=== PATIENT | male | born 1940 | race Caucasian/White ===

== ENCOUNTER 2017-05-21 13:13 | Inpatient (IN) | payer MEDICAID, MEDICARE ==
[~2017-05-21] VITALS: Ht 152.4 cm; Wt 63.1 kg
[~2017-05-21 13:13] MED LIST: AMIT10TA6 PO; CARV12.545 PO; CLON0.2T PO; DICL100G16 TP; DOCU250C69 PO; DOXA2TAB PO; ECON15CR11 TP; ENAL20TA PO; FLUT16SP15 NS; FOLI1TAB63 PO; HYDR100T26 PO; KETO5DRO80 OP; NEBI5TAB3 PO; NIFE90TA34 PO; ONDA4TAB5 PO; P20 PO; PRAV40TA PO; REN800 PO; SITA25TA3 PO
[2017-05-21 17:41] LABS: HEMATOCRIT. 41.3 % (42.0-52.0); HEMOGLOBIN. 13.5 g/dL (14.0-18.0); MEAN CORPUSCULAR HEMOGLOBIN 29.4 pg (28.0-32.0); MEAN PLATELET VOLUME 7.7 fl (7.4-10.4); PLATELET 79 x1000/uL (130-400); RED BLOOD CELL COUNT 4.59 mill/uL (4.7-6.1); RED CELL DISTRIBUTION WIDTH 20.9 % (11.6-14.6)
[2017-05-21 17:47] LABS: INR 1.3; PROTHROMBIN TIME 13.4 sec (9.4-11.6)
[2017-05-21 17:57] LABS: TROPONIN I 0.14 ng/mL (0.00-0.04)
[2017-05-21 18:13] LABS: PLATELET ESTIMATE DECREASED
[2017-05-21] MEDS ORDERED: SODIUM CHLORIDE 0.9% 1,000 ML IV SCH (19:52)
[2017-05-21 20:00] VITALS: BP 196/76
[2017-05-21] MEDS ORDERED: ENOXAPARIN 40MG/0.4ML SYR SUBCUT SCH (20:00)
[2017-05-21] MEDS ORDERED: IPRATROPIUM/ALBUTEROL 0.5-3(2.5)MG/3ML NEB INH PRN (20:00)
[2017-05-21] MEDS ORDERED: ONDANSETRON HCL 4MG/2ML VIAL IV PRN (20:00)
[2017-05-21] MEDS ORDERED: LORAZEPAM 0.5MG TABLET PO PRN (20:00)
[2017-05-21] MEDS: CLONIDINE 0.1MG TABLET PO PRN (20:33)
[2017-05-21 21:30] VITALS: BP 196/76
[2017-05-21 22:00] VITALS: BP 169/58
[2017-05-21] MEDS: ENOXAPARIN 30MG/0.3ML SYR SUBCUT SCH (23:43)
[2017-05-22] VITALS (56 sets, daily range): BP systolic 77–188; BP diastolic 38–80
[2017-05-22] MEDS ORDERED: DEXTROSE 50% WATER 50ML SYRINGE IV PRN (02:30)
[2017-05-22] MEDS: CLONIDINE 0.1MG TABLET PO PRN (05:48)
[2017-05-22] MEDS: BLOOD SUGAR DIAGNOSTIC STRIP TEST SCH ×4 (07:18→21:21)
[2017-05-22 07:19] LABS: HEMOGLOBIN. 13.7 g/dL (14.0-18.0); MEAN CORPUSCULAR HEMOGLOBIN 30.2 pg (28.0-32.0); MEAN CORPUSCULAR VOLUME 90.8 fL (80.0-94.0); MEAN PLATELET VOLUME 8.6 fl (7.4-10.4); PLATELET 64 x1000/uL (130-400); RED BLOOD CELL COUNT 4.52 mill/uL (4.7-6.1); RED CELL DISTRIBUTION WIDTH 20.1 % (11.6-14.6)
[2017-05-22 07:40] LABS: TROPONIN I 0.17 ng/mL (0.00-0.04)
[2017-05-22] MEDS ORDERED: FUROSEMIDE 40MG/4ML VIAL IVP NR (08:00)
[2017-05-22] MEDS: INSULIN LISPRO 100 UNITS/ML SUBCUT SCH ×4 (08:09→21:21)
[2017-05-22] MEDS: ACETAMINOPHEN 325MG TABLET PO PRN (08:22)
[2017-05-22] MEDS: DOCUSATE SODIUM 250MG CAPSULE PO SCH ×2 (08:22→16:18)
[2017-05-22] MEDS: CLONIDINE 0.2MG TABLET PO SCH ×2 (08:23→21:22)
[2017-05-22] MEDS: FOLIC ACID/VITAMIN B COMP W-C TABLET PO SCH (08:23)
[2017-05-22] MEDS: NIFEDIPINE XL 90MG TAB PO SCH (08:23)
[2017-05-22] MEDS: HYDRALAZINE HCL 100MG TABLET PO SCH ×2 (08:23→21:23)
[2017-05-22] MEDS: DOXAZOSIN MESYLATE 2MG TABLET PO SCH ×2 (08:24→21:24)
[2017-05-22 08:31] LABS: BG CARBOXYHEMOGLOBIN 1.8 % (0.5-1.5); BG DEOXYHEMOGLOBIN 5.7 % (0.0-5.0); BG FRACTION INSPIRED OXYGEN 32; BG HCO3 ACT 29.2 mmol/L (22.0-26.0); BG METHEMOGLOBIN 0.4 % (0.0-1.5); BG OXYGEN SATURATION 94.2 % (92.0-98.5); BG OXYHEMOGLOBIN 92.1 % (94.0-97.0); BG PCO2 37.3 mmHg (35.0-45.0); BG PH 7.512 (7.350-7.450); BG PO2 68.2 mmHg (75.0-100.0); BG SAMPLE SITE RIGHT BRACHIAL; BG TOTAL HEMOGLOBIN 13.2 g/dL (12.0-18.0); BG VENT MODE NASAL CANNULA
[2017-05-22] MEDS: IPRATROPIUM/ALBUTEROL 0.5-3(2.5)MG/3ML NEB HHN PRN ×2 (08:39→10:26)
[2017-05-22] MEDS ORDERED: ASPIRIN 81MG EC TABLET PO SCH (09:00)
[2017-05-22] MEDS ORDERED: CARVEDILOL 12.5MG TABLET PO SCH (09:00)
[2017-05-22] MEDS: FLUTICASONE PROPIONATE 50MCG/SPRAY BOTTLE BOTHNSTRLS SCH (09:40)
[2017-05-22] MEDS ORDERED: CEFTRIAXONE 1 G PREMIX 50 ML IV SCH (11:00)
[2017-05-22 11:13] LABS: BG BASE EXCESS 7.7 mmol/L (-2.0-2.0); BG BILEVEL POS AIRWAY PRESSURE 15/5; BG CARBOXYHEMOGLOBIN 0.9 % (0.5-1.5); BG DEOXYHEMOGLOBIN 0.6 % (0.0-5.0); BG FRACTION INSPIRED OXYGEN 75; BG HCO3 ACT 31.2 mmol/L (22.0-26.0); BG METHEMOGLOBIN 0.1 % (0.0-1.5); BG OXYGEN SATURATION 99.4 % (92.0-98.5); BG OXYHEMOGLOBIN 98.4 % (94.0-97.0); BG PCO2 39.7 mmHg (35.0-45.0); BG PH 7.513 (7.350-7.450); BG PO2 236.1 mmHg (75.0-100.0); BG SAMPLE SITE RIGHT BRACHIAL; BG TOTAL HEMOGLOBIN 12.6 g/dL (12.0-18.0); BG VENT MODE MASK - BIPAP
[2017-05-22] MEDS ORDERED: IPRATROPIUM/ALBUTEROL 0.5-3(2.5)MG/3ML NEB HHN SCH (12:00)
[2017-05-22] MEDS ORDERED: LORAZEPAM 0.5MG TABLET PO PRN (12:00)
[2017-05-22] MEDS: IPRATROPIUM/ALBUTEROL 0.5-3(2.5)MG/3ML NEB HHN SCH ×2 (13:52→20:08)
[2017-05-22 13:59] LABS: PLATELET ESTIMATE DECREASED
[2017-05-22] MEDS ORDERED: VANCOMYCIN 1250MG in DEXTROSE 5% WATER 250ML IV SCH (16:00)
[2017-05-22] MEDS: CEFTRIAXONE 1 G PREMIX 50 ML IV SCH (16:53)
[2017-05-22] MEDS: ATORVASTATIN CALCIUM 20MG TABLET PO SCH (21:24)
[2017-05-22] MEDS: ENOXAPARIN 30MG/0.3ML SYR SUBCUT SCH (23:35)
[2017-05-23] VITALS (62 sets, daily range): BP systolic 80–143; BP diastolic 21–94
[2017-05-23] MEDS: IPRATROPIUM/ALBUTEROL 0.5-3(2.5)MG/3ML NEB HHN SCH ×3 (01:38→13:39)
[2017-05-23 06:00] LABS: HEMATOCRIT. 38.9 % (42.0-52.0); HEMOGLOBIN. 12.9 g/dL (14.0-18.0); MEAN CORPUSCULAR HEMOGLOBIN 29.9 pg (28.0-32.0); MEAN CORPUSCULAR VOLUME 90.3 fL (80.0-94.0); MEAN PLATELET VOLUME 9.4 fl (7.4-10.4); RED BLOOD CELL COUNT 4.31 mill/uL (4.7-6.1); RED CELL DISTRIBUTION WIDTH 20.6 % (11.6-14.6)
[2017-05-23 06:13] LABS: PLATELET 49 x1000/uL (130-400)
[2017-05-23 06:26] LABS: TROPONIN I 0.14 ng/mL (0.00-0.04)
[2017-05-23] MEDS: INSULIN LISPRO 100 UNITS/ML SUBCUT SCH ×4 (08:14→21:00)
[2017-05-23] MEDS: BLOOD SUGAR DIAGNOSTIC STRIP TEST SCH ×4 (08:14→21:38)
[2017-05-23 08:33] LABS: PLATELET ESTIMATE MARKEDLY DECREASED
[2017-05-23] MEDS: HYDRALAZINE HCL 100MG TABLET PO SCH ×2 (09:00→21:00)
[2017-05-23] MEDS: DOXAZOSIN MESYLATE 2MG TABLET PO SCH ×2 (09:00→21:00)
[2017-05-23] MEDS: NIFEDIPINE XL 90MG TAB PO SCH (09:00)
[2017-05-23] MEDS: CLONIDINE 0.2MG TABLET PO SCH ×2 (09:00→21:00)
[2017-05-23] MEDS ORDERED: FUROSEMIDE 40MG/4ML VIAL IVP SCH (09:00)
[2017-05-23] MEDS: FOLIC ACID/VITAMIN B COMP W-C TABLET PO SCH (09:54)
[2017-05-23] MEDS: DOCUSATE SODIUM 250MG CAPSULE PO SCH ×2 (09:54→16:44)
[2017-05-23] MEDS: FLUTICASONE PROPIONATE 50MCG/SPRAY BOTTLE BOTHNSTRLS SCH (10:14)
[2017-05-23] MEDS ORDERED: GENTAMICIN 120MG PREMIX 100 ML IV SCH (15:00)
[2017-05-23] MEDS ORDERED: VANCOMYCIN 1 G PREMIX 200 ML IV SCH (15:00)
[2017-05-23] MEDS: CEFTRIAXONE 1 G PREMIX 50 ML IV SCH (15:50)
[2017-05-23] MEDS: ATORVASTATIN CALCIUM 20MG TABLET PO SCH (21:38)
[2017-05-23] MEDS: ACETAMINOPHEN 325MG TABLET PO PRN (23:16)
[2017-05-24] VITALS (8 sets, daily range): BP systolic 121–142; BP diastolic 45–83
[2017-05-24] MEDS: ACETAMINOPHEN 325MG TABLET PO PRN ×2 (04:42→09:52)
[2017-05-24 06:24] LABS: BASOPHILS % 0.4 % (0.0-2.0); EOSINOPHILS % 2.7 % (0.0-5.0); HEMATOCRIT. 36.7 % (42.0-52.0); HEMOGLOBIN. 12.2 g/dL (14.0-18.0); LYMPHOCYTES % 9.4 % (20.0-50.0); MEAN CORPUSCULAR VOLUME 90.4 fL (80.0-94.0); MEAN PLATELET VOLUME 9.6 fl (7.4-10.4); MONOCYTES % 13.3 % (2.0-8.0); NEUTROPHILS % 74.2 % (40.0-76.0); RED BLOOD CELL COUNT 4.06 mill/uL (4.7-6.1)
[2017-05-24] MEDS: BLOOD SUGAR DIAGNOSTIC STRIP TEST SCH ×4 (06:24→21:41)
[2017-05-24 07:18] LABS: CARBON DIOXIDE 28 mEq/L (21-32); CHLORIDE 99 mEq/L (98-107)
[2017-05-24 07:35] LABS: PLATELET 47 x1000/uL (130-400)
[2017-05-24] MEDS: IPRATROPIUM/ALBUTEROL 0.5-3(2.5)MG/3ML NEB HHN SCH ×3 (07:42→21:08)
[2017-05-24] MEDS: INSULIN LISPRO 100 UNITS/ML SUBCUT SCH ×4 (07:42→21:54)
[2017-05-24] MEDS: FOLIC ACID/VITAMIN B COMP W-C TABLET PO SCH (09:51)
[2017-05-24] MEDS: CLONIDINE 0.2MG TABLET PO SCH ×2 (09:51→21:40)
[2017-05-24] MEDS: NIFEDIPINE XL 90MG TAB PO SCH (09:51)
[2017-05-24] MEDS: HYDRALAZINE HCL 100MG TABLET PO SCH ×2 (09:51→21:41)
[2017-05-24] MEDS: DOCUSATE SODIUM 250MG CAPSULE PO SCH ×2 (09:52→18:03)
[2017-05-24] MEDS: DOXAZOSIN MESYLATE 2MG TABLET PO SCH ×2 (09:53→21:40)
[2017-05-24] MEDS: FLUTICASONE PROPIONATE 50MCG/SPRAY BOTTLE BOTHNSTRLS SCH (10:56)
[2017-05-24 11:13] LABS: BG BASE EXCESS 2.8 mmol/L (-2.0-2.0); BG CARBOXYHEMOGLOBIN 0.9 % (0.5-1.5); BG DEOXYHEMOGLOBIN 8.5 % (0.0-5.0); BG FRACTION INSPIRED OXYGEN 21; BG HCO3 ACT 27.7 mmol/L (22.0-26.0); BG METHEMOGLOBIN 0.3 % (0.0-1.5); BG OXYGEN SATURATION 91.4 % (92.0-98.5); BG OXYHEMOGLOBIN 90.3 % (94.0-97.0); BG PCO2 43.6 mmHg (35.0-45.0); BG PH 7.421 (7.350-7.450); BG PO2 64.6 mmHg (75.0-100.0); BG SAMPLE SITE RIGHT RADIAL; BG TOTAL HEMOGLOBIN 13.1 g/dL (12.0-18.0); BG VENT MODE ROOM AIR
[2017-05-24] MEDS: CEFTRIAXONE 1 G PREMIX 50 ML IV SCH (16:02)
[2017-05-24] MEDS: HYDROMORPHONE HCL/PF 2MG/ML CPJ IV PRN (17:14)
[2017-05-24] MEDS: ATORVASTATIN CALCIUM 20MG TABLET PO SCH (21:39)
[2017-05-25] MEDS: IPRATROPIUM/ALBUTEROL 0.5-3(2.5)MG/3ML NEB HHN SCH ×2 (02:27→08:04)
[2017-05-25] MEDS: HYDROMORPHONE HCL/PF 2MG/ML CPJ IV PRN (04:31)
[2017-05-25 05:08] VITALS: BP 134/69
[2017-05-25] MEDS: BLOOD SUGAR DIAGNOSTIC STRIP TEST SCH ×2 (07:08→12:20)
[2017-05-25 07:40] LABS: HEMATOCRIT. 36.5 % (42.0-52.0); HEMOGLOBIN. 12.2 g/dL (14.0-18.0); MEAN CORPUSCULAR VOLUME 89.6 fL (80.0-94.0); MEAN PLATELET VOLUME 9.5 fl (7.4-10.4); RED BLOOD CELL COUNT 4.08 mill/uL (4.7-6.1); RED CELL DISTRIBUTION WIDTH 19.8 % (11.6-14.6)
[2017-05-25] MEDS: INSULIN LISPRO 100 UNITS/ML SUBCUT SCH (07:49)
[2017-05-25 08:00] VITALS: BP 136/80
[2017-05-25] MEDS ORDERED: FUROSEMIDE 40MG/4ML VIAL IVP NR (08:45)
[2017-05-25 08:51] LABS: PLATELET 48 x1000/uL (130-400)
[2017-05-25] MEDS: HYDRALAZINE HCL 100MG TABLET PO SCH (09:00)
[2017-05-25] MEDS: CLONIDINE 0.2MG TABLET PO SCH (09:00)
[2017-05-25] MEDS: FOLIC ACID/VITAMIN B COMP W-C TABLET PO SCH (09:00)
[2017-05-25] MEDS: DOCUSATE SODIUM 250MG CAPSULE PO SCH (09:00)
[2017-05-25] MEDS: NIFEDIPINE XL 90MG TAB PO SCH (09:00)
[2017-05-25] MEDS: DOXAZOSIN MESYLATE 2MG TABLET PO SCH (09:00)
[2017-05-25 09:04] LABS: GENTAMICIN RANDOM 3.1 ug/mL
[2017-05-25 12:00] VITALS: BP 133/79
[2017-05-25 12:16] VITALS: BP 138/80
[2017-05-25 15:48] LABS: PLATELET ESTIMATE MARKEDLY DECREASED
== END 2017-05-25 13:55 | disposition home health service (06) | DRG 314 ==
LOC: ER 13:24 → 7WST 17:30 → ENRESERV 19:45 → EDBEDREQ 20:43 → 7WST 21:41 → CVICU 05-22 10:29 → 6WST 05-23 20:49
PROVIDERS: ADMIT Internal Medicine Geriatric Medicine; ATTEND Internal Medicine Geriatric Medicine
PROC: 5A09357 Assistance with Respiratory Ventilation, Less than 24 Consecutive Hours, Continuous Positive Airway Pressure (ICD-10-PCS; principal; 2017-05-22)
PROC: 5A1D70Z Performance of Urinary Filtration, Intermittent, Less than 6 Hours Per Day (ICD-10-PCS; 2017-05-22)
PROC: 5A1D70Z Performance of Urinary Filtration, Intermittent, Less than 6 Hours Per Day (ICD-10-PCS; 2017-05-25)
DX: T82.7XXA Infection and inflammatory reaction due to other cardiac and vascular devices, implants and grafts, initial encounter (principal); J96.00 Acute respiratory failure, unspecified whether with hypoxia or hypercapnia; N18.6 End stage renal disease; A41.50 Gram-negative sepsis, unspecified; I13.2 Hypertensive heart and chronic kidney disease with heart failure and with stage 5 chronic kidney disease, or end stage renal disease; I82.C12 Acute embolism and thrombosis of left internal jugular vein; D69.6 Thrombocytopenia, unspecified; E11.22 Type 2 diabetes mellitus with diabetic chronic kidney disease; I50.21 Acute systolic (congestive) heart failure; L03.114 Cellulitis of left upper limb; D63.8 Anemia in other chronic diseases classified elsewhere; Z99.2 Dependence on renal dialysis; B96.1 Klebsiella pneumoniae [K. pneumoniae] as the cause of diseases classified elsewhere; E78.00 Pure hypercholesterolemia, unspecified; E78.5 Hyperlipidemia, unspecified; I25.10 Atherosclerotic heart disease of native coronary artery without angina pectoris; I45.10 Unspecified right bundle-branch block; Y83.8 Other surgical procedures as the cause of abnormal reaction of the patient, or of later complication, without mention of misadventure at the time of the procedure; Y92.89 Other specified places as the place of occurrence of the external cause
CPT/HCPCS: 36415; 36600; 70450; 71010; 73060; 73090; 80048; 80053; 80076; 80170; 80202; 82375; 82805; 82962; 83735; 83880; 84443; 84484; 85025; 85610; 87040; 87077; 87186; 87804; 93005; 93306; 93970; 94640; 94660; 99285; J0696; J1170; J1580; J1650; J1815; J1940; J3370; J7030; J7040; J7050; J7060; J7620

== ENCOUNTER 2017-06-21 07:00 | Inpatient (IN) | payer MEDICARE ==
[~2017-06-21] VITALS: Ht 162.6 cm; Wt 64.4 kg
[2017-06-21] MEDS ORDERED: SODIUM CHLORIDE 0.9% 1,000 ML IV ONE (07:41)
[2017-06-21 08:19] LABS: BASOPHILS % 0.7 % (0.0-2.0); EOSINOPHILS % 2.3 % (0.0-5.0); HEMATOCRIT. 36.2 % (42.0-52.0); HEMOGLOBIN. 11.4 g/dL (14.0-18.0); LYMPHOCYTES % 8.8 % (20.0-50.0); MEAN CORPUSCULAR HEMOGLOBIN 28.9 pg (28.0-32.0); MEAN CORPUSCULAR VOLUME 91.5 fL (80.0-94.0); MEAN PLATELET VOLUME 7.9 fl (7.4-10.4); MONOCYTES % 8.4 % (2.0-8.0); NEUTROPHILS % 79.8 % (40.0-76.0); PLATELET 104 x1000/uL (130-400); RED BLOOD CELL COUNT 3.96 mill/uL (4.7-6.1)
[2017-06-21 08:27] LABS: INR 1.2; PROTHROMBIN TIME 12.7 sec (9.4-11.6)
[2017-06-21 08:37] LABS: CARBON DIOXIDE 26 mEq/L (21-32); CHLORIDE 100 mEq/L (98-107); TROPONIN I 0.16 ng/mL (0.00-0.04)
[2017-06-21 08:39] LABS: AMMONIA < 25 uMol/L (<32)
[2017-06-21] MEDS ORDERED: MORPHINE SULFATE 4 MG/ML CPJ (NOT FOR IM USE) IV ONE (09:00)
[2017-06-21] MEDS ORDERED: ONDANSETRON HCL 4MG/2ML VIAL IV ONE (09:00)
[2017-06-21] MEDS ORDERED: MORPHINE SULFATE 2 MG/ML CPJ (NOT FOR IM USE) IV ONE (09:10)
[2017-06-21] MEDS ORDERED: VANCOMYCIN 1 G PREMIX 200 ML IV SCH (09:30)
[2017-06-21] MEDS ORDERED: PIPERACILLIN/TAZOBACTAM 3.375GM/50ML PREMIX IV ONE (09:30)
[2017-06-21] MEDS ORDERED: PIPERACILLIN/TAZ 3.375G PREMIX 50 ML IV NR (09:45)
[2017-06-21] MEDS ORDERED: NITROGLYCERIN 0.4MG TABLET SL SL PRN (11:45)
[2017-06-21] MEDS ORDERED: DOCUSATE SODIUM 100MG CAPSULE PO PRN (11:45)
[2017-06-21] MEDS ORDERED: IPRATROPIUM/ALBUTEROL 0.5-3(2.5)MG/3ML NEB INH PRN (11:45)
[2017-06-21] MEDS ORDERED: NA PHOS,M-B/NA PHOS,DI-BA ENEMA 118ML PR PRN (11:45)
[2017-06-21] MEDS ORDERED: MAGNESIUM/ALUMINUM HYDROXIDE/SIMETHICONE 30ML UDC PO PRN (11:45)
[2017-06-21] MEDS ORDERED: GUAIFENESIN 200MG/10ML SUGAR FREE UDC PO PRN (11:45)
[2017-06-21] MEDS ORDERED: DIPHENHYDRAMINE 50MG/ML VIAL IV PRN (11:45)
[2017-06-21] MEDS ORDERED: ACETAMINOPHEN 325MG TABLET PO PRN (11:45)
[2017-06-21] MEDS ORDERED: ONDANSETRON HCL 4MG/2ML VIAL IV PRN (11:45)
[2017-06-21] MEDS: CLONIDINE 0.1MG TABLET PO PRN (12:45)
[2017-06-21] MEDS: SEVELAMER CARBONATE 800 MG TABLET PO SCH ×2 (14:30→18:10)
[2017-06-21 14:45] VITALS: BP 180/77
[2017-06-21] MEDS: HYDRALAZINE HCL 50MG TABLET PO SCH ×2 (14:45→22:00)
[2017-06-21] MEDS: ENOXAPARIN 30MG/0.3ML SYR SUBCUT SCH (15:00)
[2017-06-21 16:00] VITALS: BP 121/85
[2017-06-21] MEDS: TRAMADOL 50MG TABLET PO PRN (16:46)
[2017-06-21] MEDS ORDERED: LEVOFLOXACIN 500MG PREMIX 100 ML IV NR (17:00)
[2017-06-21 18:56] LABS: CREATINE KINASE MB FRACTION 5.8 ng/mL (0.5-3.6); TROPONIN I 0.17 ng/mL (0.00-0.04)
[2017-06-21 20:00] VITALS: BP 194/90
[2017-06-21] MEDS: LISINOPRIL 20MG TABLET PO SCH (21:00)
[2017-06-21] MEDS: METOPROLOL TARTRATE 25MG TABLET PO SCH (21:00)
[2017-06-21] MEDS ORDERED: ZOLPIDEM TARTRATE 5MG TABLET PO PRN (21:00)
[2017-06-21] MEDS: FAMOTIDINE 20MG/2ML VIAL IV SCH (21:19)
[2017-06-22] VITALS (10 sets, daily range): BP systolic 149–212; BP diastolic 54–90
[2017-06-22 00:50] LABS: TROPONIN I 0.17 ng/mL (0.00-0.04)
[2017-06-22] MEDS: LISINOPRIL 20MG TABLET PO SCH ×3 (04:32→22:21)
[2017-06-22] MEDS: METOPROLOL TARTRATE 25MG TABLET PO SCH ×3 (04:32→21:00)
[2017-06-22] MEDS: CLONIDINE 0.1MG TABLET PO PRN ×2 (04:32→12:10)
[2017-06-22] MEDS: HYDRALAZINE HCL 50MG TABLET PO SCH ×3 (06:30→22:21)
[2017-06-22 07:12] LABS: BASOPHILS % 0.8 % (0.0-2.0); EOSINOPHILS % 4.3 % (0.0-5.0); HEMATOCRIT. 34.9 % (42.0-52.0); HEMOGLOBIN. 11.3 g/dL (14.0-18.0); LYMPHOCYTES % 11.8 % (20.0-50.0); MEAN CORPUSCULAR HEMOGLOBIN 29.6 pg (28.0-32.0); MEAN CORPUSCULAR VOLUME 91.4 fL (80.0-94.0); MEAN PLATELET VOLUME 8.6 fl (7.4-10.4); MONOCYTES % 13.4 % (2.0-8.0); NEUTROPHILS % 69.7 % (40.0-76.0); PLATELET 87 x1000/uL (130-400); RED BLOOD CELL COUNT 3.82 mill/uL (4.7-6.1); RED CELL DISTRIBUTION WIDTH 19.1 % (11.6-14.6)
[2017-06-22] MEDS: SEVELAMER CARBONATE 800 MG TABLET PO SCH ×3 (09:10→18:31)
[2017-06-22] MEDS: FOLIC ACID/VITAMIN B COMP W-C TABLET PO SCH (09:10)
[2017-06-22] MEDS: AMLODIPINE 10MG TABLET PO SCH (09:11)
[2017-06-22] MEDS: ASPIRIN 325MG EC TABLET PO SCH (09:11)
[2017-06-22] MEDS: ENOXAPARIN 30MG/0.3ML SYR SUBCUT SCH (15:00)
[2017-06-22] MEDS: FAMOTIDINE 20MG/2ML VIAL IV SCH (21:37)
[2017-06-23] VITALS: BP 162/66
[2017-06-23 04:00] VITALS: BP 170/60
[2017-06-23 06:31] LABS: HEMATOCRIT. 32.4 % (42.0-52.0); HEMOGLOBIN. 10.7 g/dL (14.0-18.0); MEAN PLATELET VOLUME 8.7 fl (7.4-10.4); PLATELET 84 x1000/uL (130-400); RED BLOOD CELL COUNT 3.56 mill/uL (4.7-6.1); RED CELL DISTRIBUTION WIDTH 18.9 % (11.6-14.6)
[2017-06-23] MEDS: HYDRALAZINE HCL 50MG TABLET PO SCH ×2 (07:35→14:00)
[2017-06-23 08:00] VITALS: BP 110/68
[2017-06-23] MEDS: FOLIC ACID/VITAMIN B COMP W-C TABLET PO SCH (08:51)
[2017-06-23] MEDS: SEVELAMER CARBONATE 800 MG TABLET PO SCH ×3 (08:51→18:57)
[2017-06-23] MEDS: ASPIRIN 325MG EC TABLET PO SCH (08:51)
[2017-06-23] MEDS: AMLODIPINE 10MG TABLET PO SCH ×4 (08:51→12:42)
[2017-06-23] MEDS: METOPROLOL TARTRATE 25MG TABLET PO SCH (09:00)
[2017-06-23] MEDS: LISINOPRIL 20MG TABLET PO SCH (09:00)
[2017-06-23 11:56] LABS: PLATELET ESTIMATE DECREASED
[2017-06-23 12:00] VITALS: BP 195/78
[2017-06-23] MEDS: TRAMADOL 50MG TABLET PO PRN (12:44)
[2017-06-23] MEDS ORDERED: LEVOFLOXACIN 250MG PREMIX 50 ML IV SCH (14:00)
[2017-06-23] MEDS: ENOXAPARIN 30MG/0.3ML SYR SUBCUT SCH (15:00)
[2017-06-23 16:00] VITALS: BP 187/73
[2017-06-23] MEDS: CLONIDINE 0.1MG TABLET PO PRN (17:01)
[2017-06-23 18:12] VITALS: BP 146/67
== END 2017-06-23 20:15 | disposition home or self-care (01) | DRG 291 ==
LOC: ER 07:28 → 7WST 09:33 → EDBEDREQ 09:36 → SUPCPDRO 10:02 → ENRESERV 10:21 → CANRESERV 10:21 → ENRESERV 11:04 → SUPCPDRO 11:36
PROVIDERS: ADMIT Internal Medicine; ATTEND Internal Medicine
PROC: 5A1D70Z Performance of Urinary Filtration, Intermittent, Less than 6 Hours Per Day (ICD-10-PCS; principal; 2017-06-21)
PROC: 5A1D70Z Performance of Urinary Filtration, Intermittent, Less than 6 Hours Per Day (ICD-10-PCS; 2017-06-23)
DX: I13.2 Hypertensive heart and chronic kidney disease with heart failure and with stage 5 chronic kidney disease, or end stage renal disease (principal); I50.33 Acute on chronic diastolic (congestive) heart failure; G93.40 Encephalopathy, unspecified; I82.622 Acute embolism and thrombosis of deep veins of left upper extremity; J18.9 Pneumonia, unspecified organism; E11.22 Type 2 diabetes mellitus with diabetic chronic kidney disease; N18.6 End stage renal disease; D63.8 Anemia in other chronic diseases classified elsewhere; E44.1 Mild protein-calorie malnutrition; E78.00 Pure hypercholesterolemia, unspecified; E78.5 Hyperlipidemia, unspecified; Z68.24 Body mass index [BMI] 24.0-24.9, adult; R29.6 Repeated falls; Z79.899 Other long term (current) drug therapy; Z99.2 Dependence on renal dialysis
CPT/HCPCS: 36415; 70450; 70551; 71010; 72125; 73560; 80048; 80051; 80053; 80061; 82140; 82550; 82553; 82962; 83036; 83605; 83690; 83880; 84484; 85025; 85610; 87040; 93005; 93970; 93971; 96361; 96365; 96366; 96375; 99285; J1650; J1956; J2270; J2405; J2543; J3370; J3490; J7030; J7050

== ENCOUNTER 2017-07-28 11:27 | Emergency (ER) | payer BC, MEDICARE ==
[~2017-07-28] VITALS: Ht 152.4 cm; Wt 62.0 kg
[2017-07-28 12:32] VITALS: BP 178/75
== END 2017-07-28 14:26 | disposition home or self-care (01) ==
LOC: ER 14:22
DX: H10.9 Unspecified conjunctivitis (principal); L12.0 Bullous pemphigoid; I11.0 Hypertensive heart disease with heart failure; I50.9 Heart failure, unspecified; E78.00 Pure hypercholesterolemia, unspecified; E11.9 Type 2 diabetes mellitus without complications; Z99.2 Dependence on renal dialysis
CPT/HCPCS: 99283